=== PATIENT | male | born 1995 | race Caucasian/White ===

== ENCOUNTER 2018-04-21 22:35 | Emergency (ER) | payer OTHER ==
--- NOTE | 2018-04-21 23:44 | ED ---
Head Injury - HPI Summary HPI Summary: Patient complains of headache, neck pain, difficulty focusing, N/V 3, dizziness , slow response after unwitnessed fall from seated position today at 6 PM. Patient states he completed a rowing teamwork out, walked 60 feet, sat on a bench and then does not remember what happened afterwards. Patient was found lying on the floor, was responsive, alert oriented, but slow to respond Patient has had persistent symptoms since event. Denies prior history of syncope, seizure, hypoglycemia. Denies vision changes, Fever, cough, sore throat, CP, SOB, trauma, abdominal pain, change in urine, change in BM. Medical history is none. 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 - History Of Current Complaint Chief Complaint: EDHeadInjury Stated Complaint: HEAD INJURY Time Seen by Provider: 04/21/18 23:14 Hx Obtained From: Patient Mechanism Of Injury: Other - fall from seated position Onset/Duration: Started Hours Ago Onset of Pain: Immediate Severity Currently: Moderate Severity Initially: Moderate Pain Intensity: 4 Pain Scale Used: 0-10 Numeric Location of Head Injury: Diffuse Location: Diffuse Character: Throbbing Aggravating Factor(s): Movement Associated Signs And Symptoms: Neck Pain, Headache - Allergies/Home Medications Allergies/Adverse Reactions: Allergies Allergy/AdvReac Type Severity Reaction Status Date / Time gluten Allergy Nausea And Verified 04/21/18 22:43 Vomiting Home Medications: Home Medications Bupropion XL* [Wellbutrin XL *] 300 mg PO DAILY 04/21/18 [History Confirmed 09/07] PMH/Surg Hx/FS Hx/Imm Hx Endocrine/Hematology History: Denies: Hx Anticoagulant Therapy Cardiovascular History: Denies: Hx Cardiac Arrest History: Denies: Hx Dialysis Neurological History: Denies: Hx CVA Infectious Disease History: No Infectious Disease History: Denies: Traveled Outside the [place] in Last 30 Days - Social History Occupation: Student Alcohol Use: None Substance Use Type: Reports: None Smoking Status (MU): Never Smoked Tobacco Review of Systems Constitutional: Negative Eyes: Negative ENT: Negative Cardiovascular: Negative Respiratory: Negative Gastrointestinal: Negative Genitourinary: Negative Musculoskeletal: Negative Skin: Negative Positive: Headache Psychological: Normal All Other Systems Reviewed And Are Negative: Yes Physical Exam - Summary Physical Exam Summary: No evidence of trauma noted in mouth, face, head. Tenderness to neck. Full range of motion of neck. No tenderness along back, rib, chest, abdomen. Patient moves upper and lower extremities bilaterally without indication of pain. Normal neuro exam, but patient seems. Slow in response. Romberg slightly wobbly. Triage Information Reviewed: Yes Vital Signs On Initial Exam: Initial Vitals Temp Pulse Resp BP Pulse Ox 98.2 F 77 16 140/78 100 04/21/18 22:39 04/21/18 22:39 04/21/18 22:39 04/21/18 22:39 04/21/18 22:39 Vital Signs Reviewed: Yes Appearance: Positive: Well-Appearing Skin: Positive: Warm Head/Face: Positive: Normal Head/Face Inspection Eyes: Positive: Normal Neck: Positive: Supple Respiratory/Lung Sounds: Positive: Clear to Auscultation Cardiovascular: Positive: Normal Abdomen Description: Positive: Nontender Musculoskeletal: Positive: Normal Neurological: Positive: Normal Psychiatric: Positive: Normal AVPU Assessment: Alert - [place] Coma Scale Best Eye Response: 4 - Spontaneous Best Motor Response: 6 - Obeys Commands Best Verbal Response: 5 - Oriented Coma Scale Total: 15 Diagnostics - Vital Signs Vital Signs Temp Pulse Resp BP Pulse Ox 04/21/18 22:39 98.2 F 77 16 140/78 100 - Laboratory Result Diagrams: 04/21/18 23:46 04/21/18 23:46 Lab Statement: Any lab studies that have been ordered have been reviewed, and results considered in the medical decision making process. Head Injury Course/Dx Course Of Treatment: Patient complains of headache, neck pain, difficulty focusing, N/V 3, dizziness, slow response after unwitnessed fall from seated position today at 6 PM. Patient states he completed a rowing teamwork out, walked 60 feet, sat on a bench and then does not remember what happened afterwards. Patient was found lying on the floor, was responsive, alert oriented, but slow to respond Patient has had persistent symptoms since event. Denies prior history of syncope, seizure, hypoglycemia. Denies vision changes , Fever, cough, sore throat, CP, SOB, trauma, abdominal pain, change in urine, change in BM. Medical history is none. 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 Physical exam:No evidence of trauma noted in mouth, face, head. Tenderness to neck. Full range of motion of neck. No tenderness along back, rib, chest, abdomen. Patient moves upper and lower extremities bilaterally without indication of pain. Normal neuro exam, but patient seems. Slow in response. Romberg slightly wobbly. Vital signs within normal limits. Elevated creatinine 1.38, labs otherwise unremarkable. CT brain negative. Diagnosis concussion. No athletics until cleared by primary care. - Diagnoses Provider Diagnoses: Concussion Discharge - Sign-Out/Discharge Documenting (check all that apply): Patient Departure - Discharge Plan Condition: Stable Disposition: HOME Patient Education Materials: Concussion (ED), Post Concussion Syndrome (ED) Referrals: No Primary Care Phys,NOPCP [Primary Care Provider] - Additional Instructions: Follow-up with primary care for clearance to return to athletics. Return to the ED for any new or worsening symptoms - Billing Disposition and Condition Condition: STABLE Disposition: Home
[2018-04-22] LABS: Urine Appearance Clear; Urine Blood Negative (Negative); Urine Color Yellow; Urine Ketones Negative (Negative); Urine Protein Negative (Negative); Urine Specific Gravity 1.018 (1.010-1.030); Urine Urobilinogen Negative (Negative)
[2018-04-22 00:01] LABS: ABS Basophils 0 10^3/ul (0-0.2); ABS Eosinophils 0 10^3/ul (0-0.6); ABS Lymphocytes 2.2 10^3/ul (1.0-4.8); ABS Monocytes 0.6 10^3/ul (0-0.8); ABS Neutrophils 4.9 10^3/ul (1.5-7.7); ABS Nucleated RBC 0 10^3/ul; Eosinophil % 0.4 % (0-6); Hematocrit 45 % (42-52); Hemoglobin 15.8 g/dl (14.0-18.0); Lymphocyte % 28.2 % (25-47); Mean Corpuscular HGB Conc 35 g/dl (31-36); Mean Corpuscular Hemoglobin 32 pg (27-31); Mean Corpuscular Volume 91 fL (80-94); Mean Platelet Volume 8.6 um3 (7.4-10.4); Nucleated Red Blood Cells % 0.5; Platelet Count 207 10^3/ul (150-450); Red Blood Count 4.96 10^6/ul (4.00-5.40); Red Cell Distribution Width 13 % (10.5-15); White Blood Count 7.8 10^3/ul (3.5-10.8)
--- NOTE | 2018-04-22 00:04 | RAD ---
EXAM: CT Head Without Intravenous Contrast EXAM DATE/TIME: 04/21/2018 11:59 PM CLINICAL HISTORY: 22 years old, male; Injury or trauma; Initial encounter; Additional info: CAR, injury, slow response TECHNIQUE: Axial computed tomography images of the head/brain without intravenous contrast. All CT scans at this facility use at least one of these dose optimization techniques: automated exposure control; mA and/or kV adjustment per patient size (includes targeted exams where dose is matched to clinical indication); or iterative reconstruction. COMPARISON: No relevant prior studies available. FINDINGS: Brain: Unremarkable. No hemorrhage. No significant white matter disease. No edema. Ventricles: Unremarkable. No ventriculomegaly. Bones/joints: Unremarkable. No acute fracture. Soft tissues: Unremarkable. Sinuses: Unremarkable as visualized. No acute sinusitis. Mastoid air cells: Unremarkable as visualized. No mastoid effusion. IMPRESSION: No acute intracranial abnormality. To contact [facility] with a general question: [facility] - [phone] For direct physician to physician contact: Physician Hotline - [phone] [facility] ([facility] Facility ID #[id number])
[2018-04-22 00:08] LABS: INR 1.06 (0.77-1.02)
[2018-04-22 00:15] LABS: EGFR Non-African American 65.7 (>60)
[2018-04-22 00:37] VITALS: BP 131/64
== END 2018-04-22 00:35 | disposition home or self-care (01) ==
LOC: ED 22:35
DX: S06.0X9A Concussion with loss of consciousness of unspecified duration, initial encounter (principal); R51 Headache; M54.2 Cervicalgia; R11.2 Nausea with vomiting, unspecified; R42 Dizziness and giddiness; W19.XXXA Unspecified fall, initial encounter; Y92.9 Unspecified place or not applicable
CPT/HCPCS: 36415; 70450; 80053; 80307; 81003; 85025; 85610; 86140; 93005; 99282